=== PATIENT | female | born 1945 | race Caucasian/White ===

== ENCOUNTER 2022-01-09 12:51 | Emergency (ER) | payer MEDICARE, OTHER ==
[~2022-01-09] VITALS: Ht 162.6 cm; Wt 70.3 kg
[2022-01-09] MEDS ORDERED: LIDOCAINE 4% PATCH TP STA (15:55)
[2022-01-09] MEDS ORDERED: TRAMADOL HCL 50 MG TAB PO ONE (16:00)
[2022-01-09] MEDS ORDERED: ACETAMINOPHEN 325 MG TAB PO ONE (16:00)
[2022-01-09] MEDS ORDERED: ULTRAM 50MG50 MG PO (16:24)
[2022-01-09] MEDS ORDERED: COLACE100 M1 PO (16:24)
[2022-01-09 16:37] VITALS: BP 111/54
== END 2022-01-09 16:58 | disposition home or self-care (01) ==
LOC: ER 13:20
DX: S32.591A Other specified fracture of right pubis, initial encounter for closed fracture (principal); S00.83XA Contusion of other part of head, initial encounter; W01.0XXA Fall on same level from slipping, tripping and stumbling without subsequent striking against object, initial encounter; Y93.01 Activity, walking, marching and hiking; Y92.89 Other specified places as the place of occurrence of the external cause; I10 Essential (primary) hypertension; E78.5 Hyperlipidemia, unspecified; I50.9 Heart failure, unspecified; I25.2 Old myocardial infarction
CPT/HCPCS: 70450; 72125; 99284